=== PATIENT | female | born 1975 | race Caucasian/White ===

== ENCOUNTER 2018-05-19 17:38 | Emergency (ER) | payer OTHER ==
[~2018-05-19] VITALS: Ht 172.7 cm; Wt 114.8 kg
[2018-05-19 17:45] VITALS: BP 124/82
[2018-05-19] MEDS ORDERED: KETOROLAC 30 MG/1 ML IM ONE (18:00)
[2018-05-19] MEDS ORDERED: KETOROLAC 30 MG/1 ML ONE (18:06)
[2018-05-19] MEDS ORDERED: TRAZ-136 PO (18:24)
[2018-05-19] MEDS ORDERED: BENA20TA61 PO (18:24)
[2018-05-19] MEDS ORDERED: PRAV20TA2 PO (18:24)
[2018-05-19] MEDS ORDERED: PARO20TA98 PO (18:24)
[2018-05-19] MEDS ORDERED: HYDR25TA6 PO (18:24)
[2018-05-19] MEDS ORDERED: CLOP75TA PO (18:24)
[2018-05-19] MEDS ORDERED: ESOM40CA PO (18:24)
[2018-05-19] MEDS ORDERED: CLOP75TA52 PO (18:24)
[2018-05-19] MEDS ORDERED: BENA10TA4 PO (18:24)
[2018-05-19] MEDS ORDERED: DIAZ2TAB3 PO (18:24)
[2018-05-19] MEDS ORDERED: ALEN70TA5 PO (18:24)
== END 2018-05-19 19:07 | disposition home or self-care (01) ==
LOC: ED 18:19
DX: S83.92XA Sprain of unspecified site of left knee, initial encounter (principal); W19.XXXA Unspecified fall, initial encounter; Y93.89 Activity, other specified; Y99.8 Other external cause status; Y92.009 Unspecified place in unspecified non-institutional (private) residence as the place of occurrence of the external cause
CPT/HCPCS: 73564; 96372; 99284; J1885

== ENCOUNTER 2020-01-10 13:55 | Emergency (ER) | payer BC, OTHER ==
[~2020-01-10] VITALS: Ht 170.2 cm; Wt 132.7 kg
[~2020-01-10 13:55] MED LIST: ALEN70TA6 PO; BENA10TA59 PO; BENA20TA61 PO; CLOP75TA PO; CLOP75TA52 PO; DIAZ2TAB3 PO; ESOM40CA PO; HYDR25TA6 PO; PARO20TA98 PO; PRAV20TA2 PO; TRAZ50TA66 PO
[2020-01-10 14:01] VITALS: BP 121/84
== END 2020-01-10 15:05 | disposition home or self-care (01) ==
LOC: ED 14:22
DX: J00 Acute nasopharyngitis [common cold] (principal); B97.89 Other viral agents as the cause of diseases classified elsewhere; Z87.891 Personal history of nicotine dependence
CPT/HCPCS: 71045; 87081; 87880; 99284

== ENCOUNTER 2020-01-24 18:13 | Emergency (ER) | payer BC ==
[~2020-01-24] VITALS: Ht 170.2 cm; Wt 130.0 kg
[2020-01-24 18:21] VITALS: BP 135/82
== END 2020-01-24 18:44 | disposition home or self-care (01) ==
LOC: ED 18:37
DX: J06.9 Acute upper respiratory infection, unspecified (principal)
CPT/HCPCS: 99281